=== PATIENT | male | born 1955 | race Caucasian/White ===

== ENCOUNTER 2021-04-21 04:54 | Inpatient (IN) | payer MEDICARE, OTHER ==
[~2021-04-21] VITALS: Ht 190.5 cm; Wt 97.2 kg
[2021-04-21] VITALS (7 sets, daily range): BP systolic 125–146; BP diastolic 67–93
[2021-04-21] MEDS ORDERED: ONDANSETRON HCL 4 MG/2 ML VIAL IVP PRN (05:00)
[2021-04-21] MEDS ORDERED: 0.9% SODIUM CHLORIDE 10 ML SYRINGE IVP PRN (05:00)
[2021-04-21] MEDS ORDERED: ACETAMINOPHEN 325 MG TABLET PO PRN (05:00)
[2021-04-21 05:33] LABS: BASOPHILS % (AUTO) 0.6 % (0.0-2.0); EOSINOPHILS % (AUTO) 0.6 % (1.0-6.0); HEMATOCRIT 38.5 % (41-53); LYMPHOCYTES # (AUTO) 1.7 K/uL (1.0-4.8); LYMPHOCYTES % (AUTO) 15.8 % (22.0-44.0); MEAN CORPUSCULAR HEMOGLOBIN 29.1 pg (26.0-34.0); MEAN CORPUSCULAR HGB CONC 33.8 G/dL (31.0-37.0); MEAN CORPUSCULAR VOLUME 86 fL (80-100); MONOCYTES # (AUTO) 1.7 K/uL (0.1-1.0); MONOCYTES % (AUTO) 15.9 % (2.0-9.0); NEUTROPHILS # (AUTO) 7.3 K/uL (1.8-7.7); NEUTROPHILS % (AUTO) 67.1 % (40.0-70.0); PLATELET COUNT (AUTO) 305 K/uL (150-450); RED BLOOD CELL COUNT(AUTO) 4.48 MIL/uL (4.50-5.90); RED CELL DISTRIBUTION WIDTH 14.2 % (11.5-14.5)
[2021-04-21 05:44] LABS: CALCIUM, TOTAL 8.5 mg/dL (8.8-10.5); CREATININE 1.8 mg/dL (0.60-1.30)
[2021-04-21 05:50] LABS: ALBUMIN 2.8 g/dL (3.4-5.0); BILIRUBIN,TOTAL 0.7 mg/dL (0.1-1.0); TOTAL PROTEIN, SERUM 7.8 g/dL (6.4-8.2)
[2021-04-21 08:46] LABS: COVID AG,FIA SOURCE NASOPHARYNGEAL
[2021-04-21] MEDS: FAMOTIDINE 20 MG TABLET PO SCH (09:30)
[2021-04-21] MEDS ORDERED: SODIUM CHLORIDE 0.9% 1,000 ML IV ONE (09:30)
[2021-04-21] MEDS ORDERED: DABIGATRAN ETEXILATE MESYLATE 150 MG CAPSULE PO SCH (09:30)
[2021-04-21] MEDS ORDERED: OxyCODONE HCL/ACETAMINOPHEN 5-325 MG TABLET PO PRN (09:30)
[2021-04-21] MEDS ORDERED: DEXTROSE 50%-WATER 25 GM/50 ML SYRINGE IVP PRN (09:30)
[2021-04-21] MEDS: METOPROLOL TARTRATE 25 MG TABLET PO SCH ×2 (09:30→21:17)
[2021-04-21] MEDS ORDERED: ATOR40TA28 PO (09:52)
[2021-04-21] MEDS ORDERED: CARB15DR54 OU (09:52)
[2021-04-21] MEDS ORDERED: METO50 PO (09:52)
[2021-04-21] MEDS ORDERED: MONT-35 PO (09:52)
[2021-04-21] MEDS ORDERED: METF-1211 PO (09:52)
[2021-04-21] MEDS ORDERED: ALOG25TA PO (09:52)
[2021-04-21] MEDS ORDERED: AMLO-258 PO (09:52)
[2021-04-21] MEDS ORDERED: FURO20 PO (09:52)
[2021-04-21] MEDS ORDERED: CLOT15CR29 TP (09:52)
[2021-04-21] MEDS ORDERED: LORA10TA7 PO (09:52)
[2021-04-21] MEDS ORDERED: FLUT16H NASAL (09:52)
[2021-04-21] MEDS ORDERED: LOSA-382 PO (09:52)
[2021-04-21] MEDS ORDERED: BUDE10.26 IH (09:52)
[2021-04-21] MEDS ORDERED: ALBU8HFA IH (09:52)
[2021-04-21] MEDS ORDERED: FAMO20 PO (09:52)
[2021-04-21] MEDS ORDERED: VANCOMYCIN HCL 1.25 GM in DEXTROSE 5%-WATER 250 ML IV ONE (10:00)
[2021-04-21] MEDS: DABIGATRAN ETEXILATE MESYLATE 75 MG CAPSULE PO SCH ×2 (10:27→21:17)
[2021-04-21] MEDS: CefTRIAXone 1 GM/DEXTROSE 50 ML IV SCH (10:30)
[2021-04-21 12:41] LABS: GLUCOMETER DEV NAME(LOC) 5N.1C; GLUCOSE,POINT OF CARE 344 MG/DL (70-110)
[2021-04-21] MEDS: INSULIN LISPRO 100 UNITS/ML SQ PRN ×2 (12:54→18:27)
[2021-04-21] MEDS: DOCUSATE SODIUM 100 MG CAPSULE PO SCH (21:18)
[2021-04-21 21:41] LABS: GLUCOMETER DEV NAME(LOC) 5N.3; GLUCOSE,POINT OF CARE 373 MG/DL (70-110)
[2021-04-21 23:41] LABS: GLUCOMETER DEV NAME(LOC) 5N.3; GLUCOSE,POINT OF CARE 348 MG/DL (70-110)
[2021-04-22 05:01] VITALS: BP 144/95
[2021-04-22 06:36] LABS: GLUCOMETER DEV NAME(LOC) 5N.1C; GLUCOSE,POINT OF CARE 261 MG/DL (70-110)
[2021-04-22 07:52] LABS: CALCIUM, TOTAL 8.1 mg/dL (8.8-10.5); CREATININE 1.38 mg/dL (0.60-1.30); POTASSIUM 4.1 mmol/L (3.5-5.1)
[2021-04-22] MEDS ORDERED: VANCOMYCIN HCL 1 GM/D5% WATER 200 ML IV SCH (08:00)
[2021-04-22 08:03] VITALS: BP 135/89
[2021-04-22] MEDS: FAMOTIDINE 20 MG TABLET PO SCH (08:12)
[2021-04-22] MEDS: DABIGATRAN ETEXILATE MESYLATE 75 MG CAPSULE PO SCH ×2 (08:12→21:53)
[2021-04-22] MEDS: METOPROLOL TARTRATE 25 MG TABLET PO SCH ×2 (08:12→20:20)
[2021-04-22] MEDS: DOCUSATE SODIUM 100 MG CAPSULE PO SCH ×2 (08:12→20:20)
[2021-04-22] MEDS: ATORVASTATIN CALCIUM 20 MG TABLET PO SCH (08:12)
[2021-04-22] MEDS: INSULIN LISPRO 100 UNITS/ML SQ PRN ×4 (08:15→20:30)
[2021-04-22 11:35] VITALS: BP 151/99
[2021-04-22] MEDS: CefTRIAXone 1 GM/DEXTROSE 50 ML IV SCH (11:37)
[2021-04-22 13:39] VITALS: BP 151/99
[2021-04-22 16:10] VITALS: BP 147/95
[2021-04-22] MEDS: GlipiZIDE 5 MG TABLET PO SCH (17:50)
[2021-04-22 19:21] LABS: GLUCOMETER DEV NAME(LOC) 5S.1; GLUCOSE,POINT OF CARE 315 MG/DL (70-110)
[2021-04-22 20:01] LABS: GLUCOMETER DEV NAME(LOC) 5N.1C; GLUCOSE,POINT OF CARE 324 MG/DL (70-110)
[2021-04-22 20:33] VITALS: BP 143/97
[2021-04-22] MEDS: VANCOMYCIN HCL 750 MG in DEXTROSE 5%-WATER 250 ML IV SCH (20:44)
[2021-04-22] MEDS ORDERED: SODIUM CHLORIDE 0.9% 100 ML ONE ×2 (20:57→21:56)
[2021-04-22 21:01] LABS: GLUCOMETER DEV NAME(LOC) 5S.1; GLUCOSE,POINT OF CARE 317 MG/DL (70-110)
[2021-04-22] MEDS: ACETAMINOPHEN 325 MG TABLET PO PRN (21:01)
[2021-04-23] VITALS: BP 144/92
[2021-04-23 04:42] VITALS: BP 151/88
[2021-04-23] MEDS: GlipiZIDE 5 MG TABLET PO SCH (06:23)
[2021-04-23] MEDS: INSULIN LISPRO 100 UNITS/ML SQ PRN (06:23)
[2021-04-23] MEDS: ACETAMINOPHEN 325 MG TABLET PO PRN (06:24)
[2021-04-23 07:01] LABS: GLUCOMETER DEV NAME(LOC) 5S.1; GLUCOSE,POINT OF CARE 149 MG/DL (70-110)
[2021-04-23 07:31] VITALS: BP 145/84
[2021-04-23 07:54] LABS: CALCIUM, TOTAL 8.4 mg/dL (8.8-10.5); CREATININE 1.24 mg/dL (0.60-1.30); POTASSIUM 3.8 mmol/L (3.5-5.1)
[2021-04-23 08:16] LABS: GLUCOMETER DEV NAME(LOC) 5S.1; GLUCOSE,POINT OF CARE 151 MG/DL (70-110)
[2021-04-23] MEDS: VANCOMYCIN HCL 750 MG in DEXTROSE 5%-WATER 250 ML IV SCH (08:30)
[2021-04-23] MEDS ORDERED: CLIN300C3 PO (08:56)
[2021-04-23] MEDS ORDERED: METOPROLOL TARTRATE 50 MG TABLET PO SCH (09:00)
[2021-04-23] MEDS: ATORVASTATIN CALCIUM 20 MG TABLET PO SCH (09:10)
[2021-04-23] MEDS: DOCUSATE SODIUM 100 MG CAPSULE PO SCH (09:10)
[2021-04-23 09:11] LABS: BASOPHILS % (AUTO) 0.7 % (0.0-2.0); EOSINOPHILS % (AUTO) 1.4 % (1.0-6.0); HEMATOCRIT 36.1 % (41-53); HEMOGLOBIN 12.3 g/dL (13.5-17.5); LYMPHOCYTES # (AUTO) 1.8 K/uL (1.0-4.8); LYMPHOCYTES % (AUTO) 19.9 % (22.0-44.0); MEAN CORPUSCULAR HGB CONC 34.2 G/dL (31.0-37.0); MEAN CORPUSCULAR VOLUME 85 fL (80-100); MONOCYTES # (AUTO) 1.1 K/uL (0.1-1.0); MONOCYTES % (AUTO) 12.8 % (2.0-9.0); NEUTROPHILS # (AUTO) 5.8 K/uL (1.8-7.7); NEUTROPHILS % (AUTO) 65.2 % (40.0-70.0); PLATELET COUNT (AUTO) 314 K/uL (150-450); RED BLOOD CELL COUNT(AUTO) 4.25 MIL/uL (4.50-5.90); RED CELL DISTRIBUTION WIDTH 14.3 % (11.5-14.5)
[2021-04-23] MEDS: FAMOTIDINE 20 MG TABLET PO SCH (09:11)
[2021-04-23] MEDS: CefTRIAXone 1 GM/DEXTROSE 50 ML IV SCH (10:24)
[2021-04-23] MEDS: DABIGATRAN ETEXILATE MESYLATE 75 MG CAPSULE PO SCH (10:53)
[2021-04-23 11:56] LABS: GLUCOMETER DEV NAME(LOC) 5S.2B; GLUCOSE,POINT OF CARE 354 MG/DL (70-110)
[2021-04-23 12:00] VITALS: BP 149/81
== END 2021-04-23 13:10 | disposition home or self-care (01) | DRG 603 ==
LOC: EMS 04:55 → 5S 06:28
PROVIDERS: ADMIT Internal Medicine; ATTEND Internal Medicine
DX: L03.116 Cellulitis of left lower limb (principal); I48.20 Chronic atrial fibrillation, unspecified; N17.9 Acute kidney failure, unspecified; I13.0 Hypertensive heart and chronic kidney disease with heart failure and stage 1 through stage 4 chronic kidney disease, or unspecified chronic kidney disease; I25.10 Atherosclerotic heart disease of native coronary artery without angina pectoris; Z20.822 Contact with and (suspected) exposure to COVID-19; J45.909 Unspecified asthma, uncomplicated; I50.9 Heart failure, unspecified; N18.9 Chronic kidney disease, unspecified; E11.22 Type 2 diabetes mellitus with diabetic chronic kidney disease; Z91.010 Allergy to peanuts
CPT/HCPCS: 80048; 80053; 82962; 85025; 93005; 93306; 99285; J0696; J3370; J7030; J7050; J7060